=== PATIENT | female | born 2000 | race Caucasian/White ===

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

== ENCOUNTER → 2021-08-24 08:40 | Outpatient (BNVA) | payer BC, SELFPAY | PROVIDERS: Family Provider Family Medicine; PCP Family Medicine; Visit Provider Nurse Practitioner Family | DX: Z20.822 Contact with and (suspected) exposure to COVID-19 (principal); J02.9 Acute pharyngitis, unspecified | CPT/HCPCS: 87071; 87635; 87880 ==

== ENCOUNTER → 2021-11-23 00:01 | Outpatient (BNVA) | payer BC, SELFPAY | PROVIDERS: Family Provider Family Medicine; PCP Family Medicine; Visit Provider Nurse Practitioner Women's Health | DX: Z11.3 Encounter for screening for infections with a predominantly sexual mode of transmission (principal); N92.0 Excessive and frequent menstruation with regular cycle; N94.6 Dysmenorrhea, unspecified | CPT/HCPCS: 87491; 87591; 87661 ==

== ENCOUNTER 2024-09-22 10:09 | Inpatient (IN) | payer BC, SELFPAY ==
[2024-09-22] VITALS (24 sets, daily range): BP systolic 110–183; BP diastolic 60–101; PULSE 72–112; RESP 16–17; TEMP 36.9–37; O2SAT 97; BMI 31.6
[2024-09-22 09:34] LABS: Nitrazine Paper, PH Positive
[2024-09-22] MEDS: ondansetron 2 mg/ML SDV 2 mL 4 MG IVP (10:10)
[2024-09-22 10:12] LABS: Basophils # 0.1 10^3/uL (0.0-0.1); Basophils % 0.8 %; Eosinophils # 0.2 10^3/uL (0.0-0.8); Eosinophils % 1.2 %; Hematocrit 38.3 % (36-47); Lymphocytes # 3.1 10^3/uL (0.8-4.8); Lymphocytes % 16.8 %; Mean Corpuscular Hemoglobin 32.5 pg (27-33); Mean Platelet Volume 9.5 fL (7.4-10.4); Monocytes # 1.2 10^3/uL (0.2-0.9); Monocytes % 6.5 %; Neutrophils # 13.39 10^3/uL (1.8-7.7); Neutrophils % 72.3 %; Nucleated Red Blood Cells % 0 %; Platelet Count 287 10^3/cmm (157-399); Red Blood Count 4.12 10^6/uL (3.85-5.65); Red Cell Distribution Width 12.4 % (12.1-15.1); White Blood Count 18.49 10^3/uL (3.29-11.43)
[2024-09-22 10:50] LABS: Amphetamines Screen Urine Negative (Negative); Barbiturates Screen Urine Negative (Negative); Benzodiazepines Screen Urine Negative (Negative); Cocaine Screen Urine Negative (Negative); Opiate Screen Urine Negative (Negative); PCP Screen Urine Negative (Negative); THC Screen Urine Negative (Negative)
[2024-09-22 10:51] LABS: Rapid Plasma Reagin Syphilis Nonreactive (Nonreactive)
[2024-09-22] MEDS: dextrose 5%-lactated ringers 1,000 ML 125 ML IV (10:52)
[2024-09-22] MEDS: fentaNYL 50 mcg/mL INJ 2mL IVP ×2 (10:55→12:26)
--- NOTE | 2024-09-22 10:56 | P.HP_ITS ---
Providers/Chief Complaint 2 Admitting Physician: Florencia Hernandez DO Primary LASER BEAM MACHINE OPERATOR: Dr. Hickman in [facility] Primary Care Provider: Claudia Ervin MD Chief Complaint: vaginal Discharge HPI LASER BEAM MACHINE OPERATOR History of Present Illness Ellen Gross is a 24 year old female G1, P0 at 36 weeks gestation admitted to labor and delivery with complaints of leakage of fluid onset 8:45 AM. Gross vaginal clear fluid noted?SROM. SH[facility]NA by early ultrasound 10/20/2024 with diagnosis of subchorionic hemorrhage, noted to have resolved with late trimester ultrasound. Patient states she had early 12 to 14-week vaginal bleeding which resolved. She denies any other complications during this . Present Details : 1 Para: 0 Labs Rubella: Immune RPR: Unknown GBS: Unknown Review of Systems 2 General: Reports: 10 or more systems reviewed and unremarkable except in HPI and below Narrative: See HPI. Medications/Allergies Home Medications Medication Instructions Recorded Confirmed Last Taken Type tranexamic acid 650 mg tablet 1,300 mg (2 x 650 mg) PO TID 5 02/27/22 02/27/22 Unknown Rx (Lysteda) days #30 tabs Allergies Allergy/AdvReac Type Severity Reaction Status Date / Time No Known Allergies Allergy Verified 02/27/22 14:57 PFSH LASER BEAM MACHINE OPERATOR 2 PFSH: Medical History (Updated 09/22/24 @ 11:07 by Florencia Hernandez DO) Marijuana use No pertinent past medical history neghx:htn,dm,thyroid,dvt/pe PCP: Dr. Ervin Dysmenorrhea in adolescent Menorrhagia with regular cycle Surgical History History of tonsillectomy and adenoidectomy Family History Grandmother Hypertension Maternal grandmother Grandfather Hypertension Maternal grandfather Denies family history of Colon cancer Ovarian cancer Diabetes Heart disease Hyperlipidemia Breast cancer Family history of thyroid problem Uterine cancer Stroke Social History (Updated 09/22/24 @ 11:00 by Florencia Hernandez DO) Smoking and tobacco/nicotine status: current every day tobacco/nicotine user Second hand smoke exposure: Yes Alcohol intake: never Substance/Drug Use: never Additional social history: Patient uses medical marijuana. States she has a card. Patient smokes daily approximately 1 pack cigarettes per day Other Female Reproductive History: Hx Age of Menarche: 14 Duration of menses: 3-5 days Menstrual flow: normal/abnormal: normal Menstrual History Comment: Patient unsure of LMP History History History 2 1 Term 0 0 Miscarriages/Ectopic 0 Living Children 0 Vitals/I&O/Wt Last Vital Signs Pulse 74 09/22/24 10:50 Resp 16 09/22/24 10:55 BP 136/94 09/22/24 10:50 O2 Del Method Room Air 09/22/24 09:36 Weight last 48 hrs Weight 94.347 kg Physical Exam 2 Narrative: 24-year-old female alert and orient x 3 no acute distress HENMT: COMMON NORMALS: normocephalic Resp: COMMON NORMALS: normal respiratory effort and clear to auscultation bilaterally Cardio: COMMON NORMALS: no JVD, regular rate and regular rhythm Back/Pelvis: OTHER: Abdomen?soft, gravid. Extremity: COMMON NORMALS: normal to inspection, no clubbing, cyanosis or edema and no calf tenderness Neuro: COMMON NORMALS: patient oriented x3, CN's II-XII intact bilaterally and moves all extremities Data 09/22/24 09:50 Results Labs OB ([facility]): 2 Blood Type O Positive 09/22/24 Antibody Screen Pending 09/22/24 Hct 38.3 % (36-47) 09/22/24 Hgb 13.40 g/dL (11.27-16.99) 09/22/24 Rho(D) Type Rh positive 09/22/24 Plt Count 287 10^3/cmm (157-399) 09/22/24 RPR Nonreactive (Nonreactive) 09/22/24 Urine Opiates Screen Negative ng/mL (Negative) 09/22/24 Ur Barbiturates Screen Negative ng/mL (Negative) 09/22/24 Ur Phencyclidine Scrn Negative ng/mL (Negative) 09/22/24 Ur Amphetamines Screen Negative ng/mL (Negative) 09/22/24 U Benzodiazepines Scrn Negative ng/mL (Negative) 09/22/24 Urine Cocaine Screen Negative ng/mL (Negative) 09/22/24 U Marijuana (THC) Screen Negative ng/mL (Negative) 09/22/24 A&P Assessment and plan (1) 36 weeks gestation of : A. GBS negative?verbal from Dr. Hickman's office in [facility]. P. Admit to labor and delivery for labor management. (2) Spontaneous rupture of membranes: (3) labor: (4) Nicotine abuse: (5) Subchorionic hemorrhage in first trimester: Attestations 2 Medical Necessity Statement*: 24-year-old female G1, P0 admitted to [facility] and delivery after confirmation of spontaneous rupture of membranes for management of labor and delivery. Coding Level of Care Code Acute Code for Chg Fwd Diagnoses 36 weeks gestation of Z3A.36 Spontaneous rupture of membranes labor O60.00 Nicotine abuse Z72.0 Subchorionic hemorrhage in first trimester O20.8
[2024-09-22] MEDS: lactated ringers 1,000 ML 999 ML IV (11:37)
[2024-09-22] MEDS: oxytocin 30 UNIT/500 ML BAG 600 UNIT IV (12:27)
--- NOTE | 2024-09-22 12:55 | PM.DELIVERY ---
Delivery Note: Date of delivery: September 22, 2024 Pre-delivery diagnoses: 36wk IUP with SROM Labor GBS Neg Nicotine use during Hx of THC use Hx of Subchorionic Hemorrhage Post-delivery diagnoses: NC x 1 Procedure: 24-year-old female G1, P1 delivered via of viable male at 36 weeks gestation. Vertex presented and nuchal cord x 1 was clamped and cut. Anterior followed by the posterior shoulders were delivered with the remainder the baby's body to follow. The oral and nasal pathways were bulb suctioned. The baby was placed on the warmer for nursing assistance and evaluation. Three-vessel cord was noted. The uterine fundus was massaged and after quite a delay (30 minutes) the placenta presented in a Donohue presentation with trailing membranes. Pitocin IV solution was given in a bolus manner with minimal bleeding. The vaginal vault was explored with no lacerations noted. Patient is in stable and satisfactory condition. Op report anesthesia: None Delivering Physician: Florencia Hernandez DO Estimated blood loss (mL): 500 Post-Delivery Status: Stable History History History 1 Term 0 0 Miscarriages/Ectopic 0 Living Children 0 A&P Assessment and plan (1) Spontaneous vaginal delivery: (2) 36 weeks gestation of : (3) Nicotine abuse: (4) labor: (5) Spontaneous rupture of membranes: Plan Began care. Coding Level of Care Code Acute Code for Chg Fwd Diagnoses Spontaneous vaginal delivery O80 36 weeks gestation of Z3A.36 Nicotine abuse Z72.0 labor O60.00 Spontaneous rupture of membranes
[2024-09-22] MEDS: ibuprofen 800 mg tablet PO ×2 (15:21→20:45)
[2024-09-22] MEDS: benzocaine-menthol 78 gm Canister 1 SPRAY TOPICAL (15:22)
[2024-09-22] MEDS: docusate sodium 100 mg Capsule PO (20:46)
[2024-09-22 23:40] LABS: Hematocrit 36.2 % (36-47); Mean Corpuscular HGB Conc 34.5 g/dL (30-55); Mean Corpuscular Volume 92.6 fl (85-98); Mean Platelet Volume 9.9 fL (7.4-10.4); Platelet Count 319 10^3/cmm (157-399); Red Blood Count 3.91 10^6/uL (3.85-5.65); Red Cell Distribution Width 12.4 % (12.1-15.1); White Blood Count 25.82 10^3/uL (3.29-11.43)
[2024-09-23 04:15] VITALS: BP 104/61; PULSE 95; RESP 16; TEMP 36.6; O2SAT 98
[2024-09-23] MEDS: PRENATAL VIT NO.130/IRON/FOLIC 1 EACH TABLET PO (09:16)
[2024-09-23] MEDS: docusate sodium 100 mg Capsule PO (09:16)
[2024-09-23] MEDS: ibuprofen 800 mg tablet PO (09:16)
--- NOTE | 2024-09-23 09:16 | P.DS_ITS ---
Discharge Providers RECORDS MANAGEMENT SPECIALIST Date of Admission: 09/22/24 10:09 Date of Discharge: 09/23/24 Attending Provider at Admission: Florencia Hernandez DO Attending Provider at Discharge: Yobany Swenson MD Primary Care Provider: Claudia Ervin MD Diagnoses at Discharge Discharge Diagnosis (1) Spontaneous vaginal delivery: Status: Acute (2) 36 weeks gestation of : Status: Acute (3) Nicotine abuse: Status: Acute (4) labor: Status: Acute (5) Spontaneous rupture of membranes: Status: Acute Reason for Visit Reason for Visit: vaginal Discharge Hospital Course Hospital Course Mrs. Gross 24-year-old female admitted to labor and delivery in active labor at 36 weeks. She had a spontaneous vaginal delivery without complication. She is afebrile and hemodynamically stable day 1. Tolerating diet well. Ambulating without difficulty. She was counseled regarding pelvic rest for 6 weeks (no sex, no tampons, no vaginal douches). Return to the emergency room if any fever, increased bleeding or pain. Information Peripartum Data: Infant Delivery Method: Vaginal Physical Exam Narrative: GA; alert and oriented x 3 HEENT: normal Breasts: engorged Nipples - skin intact Lungs; clear to auscultation Heart: regular rhythm, no murmurs. Abd: Appropriately tender. BS+. Uterine fundus below umbilicus. No Fundal Tenderness. Perineum: normal lochia. Extremities: no edema, no cyanosis, no tenderness. History History History 1 Term 0 0 Miscarriages/Ectopic 0 Living Children 0 Discharge Data Studies Completed and Pending Pending at discharge Category Date Time Status RPR with Reflex to Titer Routine Lab 09/22/24 09:50 Received Retype for Patiets ABO/Rh Routine Lab 09/22/24 11:02 Ordered Laboratory Results WBC 25.82 10^3/uL (3.29-11.43) H 09/22/24 23:26 RBC 3.91 10^6/uL (3.85-5.65) 09/22/24 23:26 Hgb 12.50 g/dL (11.27-16.99) 09/22/24 23:26 Hct 36.2 % (36-47) 09/22/24 23:26 MCV 92.6 fl (85-98) 09/22/24 23:26 MCH 32.0 pg (27-33) 09/22/24 23:26 MCHC 34.5 g/dL (30-55) 09/22/24 23:26 RDW 12.4 % (12.1-15.1) 09/22/24 23:26 Plt Count 319 10^3/cmm (157-399) 09/22/24 23:26 MPV 9.9 fL (7.4-10.4) 09/22/24 23:26 Neut % (Auto) 72.3 % 09/22/24 09:50 Lymph % (Auto) 16.8 % 09/22/24 09:50 [place] % (Auto) 6.5 % 09/22/24 09:50 Eos % (Auto) 1.2 % 09/22/24 09:50 Baso % (Auto) 0.8 % 09/22/24 09:50 Neut # (Auto) 13.39 10^3/uL (1.8-7.7) H 09/22/24 09:50 Lymph # (Auto) 3.1 10^3/uL (0.8-4.8) 09/22/24 09:50 [place] # (Auto) 1.2 10^3/uL (0.2-0.9) H 09/22/24 09:50 Eos # (Auto) 0.2 10^3/uL (0.0-0.8) 09/22/24 09:50 Baso # (Auto) 0.1 10^3/uL (0.0-0.1) 09/22/24 09:50 Nucleated RBC % (auto) 0 % 09/22/24 09:50 Nucleated RBCs # 0.0 /100WBC 09/22/24 09:50 Fluid pH (paper) Positive H 09/22/24 09:31 Urine Opiates Screen Negative ng/mL (Negative) 09/22/24 09:50 Ur Barbiturates Screen Negative ng/mL (Negative) 09/22/24 09:50 Ur Phencyclidine Scrn Negative ng/mL (Negative) 09/22/24 09:50 Ur Amphetamines Screen Negative ng/mL (Negative) 09/22/24 09:50 U Benzodiazepines Scrn Negative ng/mL (Negative) 09/22/24 09:50 Urine Cocaine Screen Negative ng/mL (Negative) 09/22/24 09:50 U Marijuana (THC) Screen Negative ng/mL (Negative) 09/22/24 09:50 RPR Nonreactive (Nonreactive) 09/22/24 09:50 Blood Type O Positive 09/22/24 09:50 Rho(D) Type Rh positive 09/22/24 09:50 Antibody Screen Negative 09/22/24 09:50 Vitals Last Vital Signs Temp 97.8 F 09/23/24 04:15 Pulse 95 09/23/24 04:15 Resp 16 09/23/24 04:15 BP 104/61 09/23/24 04:15 Pulse Ox 98 09/23/24 04:15 O2 Del Method Room Air 09/23/24 04:15 Results Labs OB ([facility]): Blood Type O Positive 09/22/24 Antibody Screen Negative 09/22/24 Hct 36.2 % (36-47) 09/22/24 Hgb 12.50 g/dL (11.27-16.99) 09/22/24 Rho(D) Type Rh positive 09/22/24 Plt Count 319 10^3/cmm (157-399) 09/22/24 RPR Nonreactive (Nonreactive) 09/22/24 Urine Opiates Screen Negative ng/mL (Negative) 09/22/24 Ur Barbiturates Screen Negative ng/mL (Negative) 09/22/24 Ur Phencyclidine Scrn Negative ng/mL (Negative) 09/22/24 Ur Amphetamines Screen Negative ng/mL (Negative) 09/22/24 U Benzodiazepines Scrn Negative ng/mL (Negative) 09/22/24 Urine Cocaine Screen Negative ng/mL (Negative) 09/22/24 U Marijuana (THC) Screen Negative ng/mL (Negative) 09/22/24 Discharge Plan Discharge Patient Disposition: Home Condition: Stable Prescriptions: New acetaminophen 325 mg capsule 325 mg PO Q4H PRN (Reason: fever or pain) Qty: 60 0RF ibuprofen 800 mg tablet 800 mg PO TID PRN (Reason: pain) Qty: 60 0RF Discontinued tranexamic acid [Lysteda] 650 mg tablet 1,300 mg PO TID 5 Days Qty: 30 6RF Rx Instructions: maximum of 5 days Discharge Orders: Discharge Order (Routine); Ordered 09/23/24 Ordered By: Yobany Swenson Referrals: Yobany Swenson MD [Physician] - (FOLLOW UP WITH DR. SWENSON ON October AT 1:30PM ) Discharge Diet: Usual diet Discharge Activity: Limit activity as instructed Patient Instructions: Depression (DC), Bleeding (GEN), Opioid Safety (DC), Preeclampsia and Eclampsia After Delivery (GEN), Hemorrhage (DC), OB Discharge Report, OB Food/Drug Interaction Guide, Opioid Safety, OB Home Care, OB Vaginal Deliveries - [facility], Abnormal Bleeding Activity Restrictions/Additional Instructions: 1. Please call [facility] on next working day to make your appointment in 6 weeks. 2. Please stay home until you come back to the clinic on first post- hospatilization check up. 3. Please follow instructions on your medications CAREFULLY. 4. If you have abdominal incision, do not cover it unless dressing is necessary because of drainage. OK to shower, but avoid bath. Leave steri-strips until they fall off. If they are still on one week after surgery, you may remove them. 5. If you had vaginal surgery or vaginal repair, Dr. Swenson may instruct you to take SITZ bath. 6. Yellow, blood tinged odorous vaginal discharge is usually normal after hysterectomy or vaginal surgeries. 7. No SEXUAL INTERCOURSE, tampons, or douches until you are completely released from the post-operative care. 8. Avoid constipation by eating right and maybe using some Metamucil or Milk of Magnesia. 9. All prescription refills are given during the working hours. Please do no wait till it runs out. Call the clinic at [phone] before your medication runs out. The clinic will get in touch with your doctor to prescribe medications if necessary. 10. Please remain within 40 mile radius from our hospital because emergencies do happen now and then during the post-operative period. 11. If you have stairs at home, take one step at a time slowly and minimize the number of trips. It helps to stay in one floor for the next few days. No lifting except what you can lift by one hand until you are released from the post-operative care. 12. Driving is discouraged until you are well healed. It may be 3-4 weeks before you feel strong enough to drive. You should be able to turn and look through the rear window without pain and you should be able to push the brake pedal very hard without pain before you drive. No fast rules, but SAFETY should be your primary concern. DO NOT drive if you are on sedating medications such as narcotics. 13. Call the clinic (during working hours) to make urgent appointment or go to the Emergency room, if any of the following occurs: i. Vaginal bleeding becomes heavy, more than a period. ii. Incision becomes red and sore, or drains pus. iii. Your TEMPERATURE is over 100.4F or you have chill. iv. IV site becomes red and swollen (a little ``knot?? is usually OK) v. Persistent nausea and vomiting vi. Persistent constipation or diarrhea vii. Rash or allergic reaction to medications. Discharge Attestations RECORDS MANAGEMENT SPECIALIST Time Spent in Discharge Care*: greater than 30 min Coding Level of Care Code Acute Code for Chg Fwd Diagnoses Spontaneous vaginal delivery O80 36 weeks gestation of Z3A.36 Nicotine abuse Z72.0 labor O60.00 Spontaneous rupture of membranes
[2024-09-23 10:00] VITALS: BP 125/76; PULSE 70; O2SAT 98
[2024-09-24 11:25] LABS: RPR w(Moniotor) w/REFL Titer NON-REACTIVE (NON-REACTIVE)
== END 2024-09-23 09:40 | disposition home or self-care (01) | DRG 805 ==
LOC: OPOB 10:10 → OBGYN 10:10
PROVIDERS: Admitting Provider Obstetrics & Gynecology; Family Provider Family Medicine; PCP Family Medicine; Visit Provider Obstetrics & Gynecology
DX: O69.81X0 Labor and delivery complicated by cord around neck, without compression, not applicable or unspecified (principal); O60.14X0 Preterm labor third trimester with preterm delivery third trimester, not applicable or unspecified; Z37.0 Single live birth; Z3A.36 36 weeks gestation of pregnancy; O99.334 Smoking (tobacco) complicating childbirth; F17.210 Nicotine dependence, cigarettes, uncomplicated
CPT/HCPCS: 36415; 59025; 59409; 83986; 85027; 96374; 96376; 99211; J2405; J2590; J3010; J7120; J7121